=== PATIENT | female | born 1945 | race Caucasian/White ===

== ENCOUNTER → 2017-01-04 | Outpatient (CLI) | payer MEDICARE ==
[~2017-01-04] MED LIST: ASPIRIN EC81 MG PO; CALCIUM + D SO1 EACH PO; CALCIUM + VITA1 EACH PO; CARTIA XT300 MG PO; CINNAMON500 MG PO; COREG6.25 MG PO; COZAAR100 MG PO; FEOSOL325 MG PO; GLUCOPHAGE850 MG PO; HYDROCHLOROTHIA25 MG PO; LIPITOR20 M1 PO; LOPRESSOR25 MG PO; METHYLPHENIDATE20 M2 PO; MULTI VITAMIN1 EACH PO; NOVOLIN 70100 UNIT/1 SUB-Q; NOVOLOG MI100 UNIT/1 SUB-Q; PROTONIX40 MG PO; RITALIN SR 20MG20 MG PO; TOFRANIL50 MG PO
== END | disposition disaster alternative care site (69) ==
LOC: LFPA 09:51
DX: D50.0 Iron deficiency anemia secondary to blood loss (chronic) (principal)

== ENCOUNTER → 2017-02-04 | Outpatient (CLI) | payer MEDICARE | END | disposition disaster alternative care site (69) | LOC: GBCOE 01-31 11:30 | DX: Z12.31 Encounter for screening mammogram for malignant neoplasm of breast (principal) | CPT/HCPCS: G0202 ==

== ENCOUNTER → 2017-02-10 | Day surgery (SDC) | payer MEDICARE ==
[~2017-02-10] VITALS: Ht 162.6 cm; Wt 94.3 kg
== END | disposition disaster alternative care site (69) ==
LOC: GPOC 02-04 10:00 → GEND 08:56 → GPOC 11:00
PROC: 0DB68ZX Excision of Stomach, Via Natural or Artificial Opening Endoscopic, Diagnostic (ICD-10-PCS; principal; 2017-02-10)
DX: K74.60 Unspecified cirrhosis of liver (principal); I85.10 Secondary esophageal varices without bleeding; M19.90 Unspecified osteoarthritis, unspecified site; E11.9 Type 2 diabetes mellitus without complications; K21.9 Gastro-esophageal reflux disease without esophagitis; E78.00 Pure hypercholesterolemia, unspecified; I10 Essential (primary) hypertension; Z98.890 Other specified postprocedural states; Z79.4 Long term (current) use of insulin; Z79.899 Other long term (current) drug therapy; Z88.8 Allergy status to other drugs, medicaments and biological substances; Z88.2 Allergy status to sulfonamides
CPT/HCPCS: J2001; J7030

== ENCOUNTER → 2017-02-15 | Outpatient (CLI) | payer MEDICARE | END | disposition disaster alternative care site (69) | LOC: GRAD 08:30 | DX: K74.60 Unspecified cirrhosis of liver (principal); K80.20 Calculus of gallbladder without cholecystitis without obstruction; R16.1 Splenomegaly, not elsewhere classified ==